=== PATIENT | female | born 1980 | race African-American/Black ===

== ENCOUNTER 2019-01-08 12:00 | Emergency (ER) | payer BC, OTHER ==
[2019-01-08 12:08] VITALS: BP 154/85; PULSE 87; TEMP 99.6; BMI 34.1
[2019-01-08] MEDS ORDERED: KETOROLAC TROMETHAMINE 60 MG/2 ML VIAL IM ONE (12:28)
[2019-01-08] MEDS ORDERED: CYCLOBENZAPRINE HCL 10 MG TABLET (FP) PO ONE (12:28)
[2019-01-08] MEDS ORDERED: CYCLOBENZAPRINE HCL 10 MG TABLET (FP) ONE (12:34)
[2019-01-08] MEDS ORDERED: KETOROLAC TROMETHAMINE 60 MG/2 ML VIAL ONE (12:34)
--- NOTE | 2019-01-08 12:40 | PDOC ---
History of Present Illness - General Chief Complaint: Pain Stated Complaint: LOWER BACK PAIN Time Seen by Provider: 01/08/19 12:13 History Source: Patient - History of Present Illness Occurred: reports: yesterday Severity: reports: moderate Pain Location: reports: back Past History - Past Medical History Allergies/Adverse Reactions: Allergies Allergy/AdvReac Type Severity Reaction Status Date / Time No Known Allergies Allergy Verified 01/08/19 12:07 Home Medications: Ambulatory Orders Bupropion HCl [Bupropion Xl] 300 mg PO DAILY 12/19/14 Cyclobenzaprine HCl [Flexeril -] 10 mg PO TID #9 tablet 01/08/19 Ibuprofen [Motrin -] 800 mg PO Q6H #30 tablet 01/08/19 COPD: No - Immunization History Immunization Up to Date: Yes - Suicide/Smoking/Psychosocial Hx Smoking History: Never smoked Hx Alcohol Use: Yes Substance Use Type: None Review of Systems - Review of Systems Constitutional: No: Chills, Fever ABD/GI: No: Nausea, Vomiting, Abdominal cramping : No: Dysuria, Flank Pain *Physical Exam - Vital Signs Last Vital Signs Temp Pulse Resp BP Pulse Ox 99.6 F 87 18 154/85 99 01/08/19 12:05 01/08/19 12:05 01/08/19 12:05 01/08/19 12:05 01/08/19 12:05 - Physical Exam General Appearance: Yes: Appropriately Dressed, Mild Distress HEENT: positive: Normal Voice Neck: positive: Supple Gastrointestinal/Abdominal: positive: Soft. negative: Tender Musculoskeletal: positive: Other (reports pain to mid low back with forward pension). negative: CVA Tenderness, Vertebral Tenderness Integumentary: positive: Dry, Warm Neurologic: positive: Fully Oriented, Alert, Normal Mood/Affect Medical Decision Making - Medical Decision Making 01/08/19 12:35 38 yo F, endorses h/o chronic lower back pain, no imaging to date, here w/ non- radiating, mid lower back pain after picking up her niece last night. Not taking anything for pain. No lower extremity weakness, sensory changes or incontinence See exam M/l lower back strain in setting of heavy lifting No red flags on exam -pain control in ED -dc w/ rx, pmd f/u as needed *DC/Admit/Observation/Transfer Diagnosis at time of Disposition: Low back strain Qualifiers: Encounter type: initial encounter Qualified Code(s): S39.012A - Strain of muscle, fascia and tendon of lower back, initial encounter - Discharge Dispostion Disposition: HOME Condition at time of disposition: Good - Prescriptions Prescriptions: Cyclobenzaprine HCl [Flexeril -] 10 mg PO TID #9 tablet Ibuprofen [Motrin -] 800 mg PO Q6H #30 tablet - Referrals - Patient Instructions Printed Discharge Instructions: DI for Back Strain or Sprain Additional Instructions: Take meds as directed and follow up with your PMD if pain persists - Post Discharge Activity Forms/Work/School Notes: Back to Work
== END 2019-01-08 12:58 | disposition home or self-care (01) ==
LOC: JERFT 12:00
PROC: 3E0233Z Introduction of Anti-inflammatory into Muscle, Percutaneous Approach (ICD-10-PCS; principal; 2019-01-08)
DX: S39.012A Strain of muscle, fascia and tendon of lower back, initial encounter (principal); X50.0XXA Overexertion from strenuous movement or load, initial encounter; X50.1XXA Overexertion from prolonged static or awkward postures, initial encounter; Y93.89 Activity, other specified; Y92.038 Other place in apartment as the place of occurrence of the external cause; Y99.8 Other external cause status
CPT/HCPCS: 99281-25

== ENCOUNTER 2021-03-02 13:13 | Emergency (ER) | payer BC ==
[2021-03-02 13:25] VITALS: TEMP 99.1; BMI 38.2
[2021-03-02] MEDS ORDERED: ACETAMINOPHEN 500 MG TABLET (FP) PO ONE (14:20)
[2021-03-02] MEDS ORDERED: ACETAMINOPHEN 500 MG TABLET (FP) ONE (14:35)
[2021-03-02 16:21] VITALS: BP 139/80; PULSE 68
== END 2021-03-02 16:28 | disposition home or self-care (01) ==
LOC: JER 13:13
DX: R51.9 Headache, unspecified (principal); R03.0 Elevated blood-pressure reading, without diagnosis of hypertension
CPT/HCPCS: 70450-TC; 99284-25

== ENCOUNTER 2022-03-15 11:20 | Emergency (ER) | payer BC ==
[2022-03-15 11:26] VITALS: BP 152/98; PULSE 82; TEMP 98.4; BMI 33.3
[2022-03-15] MEDS ORDERED: diazePAM 5 MG TABLET PO ONE (12:51)
[2022-03-15] MEDS ORDERED: KETOROLAC TROMETHAMINE 30 MG/1 ML VIAL IM ONE (12:51)
[2022-03-15] MEDS ORDERED: ACETAMINOPHEN 325 MG TABLET (FP) PO ONE (12:51)
[2022-03-15] MEDS ORDERED: LIDOCAINE 5% TOPICAL PATCH TP ONE (12:52)
[2022-03-15] MEDS ORDERED: diazePAM 5 MG TABLET ONE (12:56)
[2022-03-15] MEDS ORDERED: KETOROLAC TROMETHAMINE 30 MG/1 ML VIAL ONE (12:56)
[2022-03-15] MEDS ORDERED: LIDOCAINE 5% TOPICAL PATCH ONE (12:56)
[2022-03-15] MEDS ORDERED: ACETAMINOPHEN 325 MG TABLET (FP) ONE (12:56)
[2022-03-15] MEDS ORDERED: LIDOCAINE PATCH REMOVAL MC SCH (22:00)
== END 2022-03-15 14:08 | disposition home or self-care (01) ==
LOC: JERFT 11:20
PROC: 3E023GC Introduction of Other Therapeutic Substance into Muscle, Percutaneous Approach (ICD-10-PCS; principal; 2022-03-15)
DX: S39.012A Strain of muscle, fascia and tendon of lower back, initial encounter (principal); X50.0XXA Overexertion from strenuous movement or load, initial encounter
CPT/HCPCS: 99284-25

== ENCOUNTER 2024-05-19 18:13 | Emergency (ER) | payer BC ==
[2024-05-19 18:33] VITALS: RESP 18; TEMP 97; BMI 36.6
[2024-05-19] MEDS ORDERED: LIDOCAINE 5% TOPICAL PATCH ONE (19:47)
[2024-05-19] MEDS ORDERED: IBUPROFEN 400 MG TABLET (FP) PO ONE (19:47)
[2024-05-19] MEDS ORDERED: ACETAMINOPHEN 325 MG TABLET (FP) ONE (19:47)
[2024-05-19] MEDS: IBUPROFEN 400 MG TABLET (FP) PO ONE (19:57)
[2024-05-19] MEDS: ACETAMINOPHEN 325 MG TABLET (FP) PO ONE (19:57)
[2024-05-19] MEDS: LIDOCAINE 5% TOPICAL PATCH TP ONE (19:57)
[2024-05-19 20:16] VITALS: BP 177/92; PULSE 79
[2024-05-19] MEDS ORDERED: LIDOCAINE PATCH REMOVAL MC SCH (22:00)
== END 2024-05-19 21:32 | disposition home or self-care (01) ==
LOC: JER 18:13
DX: M62.830 Muscle spasm of back (principal); I10 Essential (primary) hypertension
CPT/HCPCS: 99283-25

== ENCOUNTER 2024-10-05 04:35 | Day surgery (SDC) | payer BC ==
[2024-09-27 11:01] VITALS: BMI 36.6
[2024-10-05 13:34] VITALS: BP 166/95; PULSE 77; RESP 19; TEMP 98
== END 2024-10-05 13:50 | disposition home or self-care (01) ==
LOC: JASU-ENDO 04:35
PROVIDERS: ATTEND Internal Medicine Gastroenterology
PROC: 0DJD8ZZ Inspection of Lower Intestinal Tract, Via Natural or Artificial Opening Endoscopic (ICD-10-PCS; principal; 2024-10-05 12:00)
DX: D50.9 Iron deficiency anemia, unspecified (principal)
CPT/HCPCS: 81025

== ENCOUNTER 2024-10-10 04:38 | Day surgery (SDC) | payer BC ==
[2024-10-09 11:37] VITALS: BMI 36.6
[2024-10-10 11:32] VITALS: RESP 18
[2024-10-10 12:48] VITALS: TEMP 98
[2024-10-10 15:18] VITALS: BP 154/94; PULSE 86
== END 2024-10-10 13:46 | disposition home or self-care (01) ==
LOC: JASU-ENDO 04:38
PROVIDERS: ATTEND Internal Medicine Gastroenterology
PROC: 0DB38ZX Excision of Lower Esophagus, Via Natural or Artificial Opening Endoscopic, Diagnostic (ICD-10-PCS; principal; 2024-10-10 11:45)
DX: D50.9 Iron deficiency anemia, unspecified (principal); K29.50 Unspecified chronic gastritis without bleeding; K21.9 Gastro-esophageal reflux disease without esophagitis
CPT/HCPCS: 81025; 88305-TC; 88342-TC